=== PATIENT | female | born 1935 | race Caucasian/White ===

== ENCOUNTER 2017-04-17 13:33 | Observation (INO) | payer MEDICARE ==
[2017-04-17] MEDS ORDERED: XYLOCAINE 1%/Epi 1:100000 MDV 20 ML IJ ONE (13:46)
[2017-04-17] MEDS ORDERED: Adacel Vial IM ONE ×2 (13:46→16:00)
[2017-04-17 14:02] LABS: BASOPHIL % 0.2 % (0.0-0.4); Basophil (Absolute #) 0.02 (0-0.4); Eosinophil % 0.5 % (0.00-5.0); Eosinophil (Absolute #) 0.06 (0-0.5); Granulocyte Absolute (ANC) 9.16 (1.4-6.9); Granulocytes % 79.2 % (36.0-66.0); Hemoglobin 12.8 gm/dl (12.0-16.0); Lymphocyte (Absolute #) 1.85 (1.0-4.6); Mean Cell Volume 92.1 fl (78-100); Mean Corpuscular Hemoglobin 28.8 pg (26-32); Mean Corpuscular Hgb Concent. 31.2 g/dl (32-36); Mean Platelet Volume 9.3 fl (6-9.5); Monocyte (Absolute #) 0.48 (0.0-1.3); Monocytes % 4.1 % (0.0-12.0); Platelet Count 231 K/mm3 (150-450); Red Blood Count 4.45 M/mm3 (4.1-5.4); Red Cell Distribution Width 12.9 % (11.5-14.0); White Blood Count 11.6 K/mm3 (4.0-10.5)
[2017-04-17 14:32] LABS: ALBUMIN 3.6 g/dL (3.4-5.0); ALKALINE PHOSPHATASE 75 U/L (46-116); ANION GAP 10.3 MEQ/L (5-15); BLOOD UREA NITROGEN 23 mg/dL (9-20); CHLORIDE 105 mEq/L (98-107); Carbon Dioxide 28.3 mEq/L (21-32); Creatinine 1 1.06 mg/dl (0.55-1.30); EST GLOMERULAR FILTRATION RATE 53 ML/MIN; Glucose 145 MG/DL (70-110); Potassium 3.9 mEq/L (3.5-5.1); SGOT/AST 10 U/L (15-37); SODIUM 140 mEq/L (136-145); Total Protein 6.9 gm/dL (6.4-8.2)
--- NOTE | 2017-04-17 14:38 | ERPHSYRPT ---
- History of Present Illness Time Seen by Provider: 04/17/17 13:45 Source: patient, family () Patient Subjective Stated Complaint: pt was in kitchen and fell and hit head on fridge, unsure if had syncopal episode Triage Nursing Assessment: pt arrived alert and in wc, resp easy, skin w/d/p. laceration to back right side of head, no bleeding, no bruising or abrasions noted Physician History: CC: fell Hx: 82 y/o patient of Dr Meyers. The patient was standing in her kitchen and fell and hit her head. states she was awake right after. He thinks she passed out. She has hx of Parkinson's. She has a cut to the back of the head. Unsure last tetanus vaccine. No N/T/W. No chest or abd pain. Mild neck discomfort. Severity: mild, moderate Allergies/Adverse Reactions: No Known Drug Allergies Allergy (Verified 04/17/17 14:01) Home Medications: Carbidopa/Levodopa [Carbidopa-Levodopa 25-100 Tab] 25 - 100 mg TID 04/17/17 [ History] Lisinopril [Lisinopril] 20 mg DAILY 04/17/17 [History] Meclizine HCl 25 mg QID 04/17/17 [History] Omeprazole [Prilosec] 20 mg DAILY 04/17/17 [History] Oxybutynin Chloride [Oxybutynin Chloride ER] 10 mg DAILY 04/17/17 [History] Hx Tetanus, Diphtheria Vaccination/Date Given: No Hx Influenza Vaccination/Date Given: Yes Hx Pneumococcal Vaccination/Date Given: Yes Immunizations Up to Date: Yes - Review of Systems Constitutional: No Fever, No Chills Eyes: No Vision Changes Ears, Nose, & Throat: No Symptoms Respiratory: No Symptoms Cardiac: Syncope (?), No Chest Pain Abdominal/Gastrointestinal: No Abdominal Pain, No Nausea, No Vomiting, No Diarrhea Skin: Skin Lesions (cut to back of her head), No Rash All Other Systems: Reviewed and Negative - Past Medical History Pertinent Past Medical History: Yes Neurological History: Other ENT History: No Pertinent History Cardiac History: Hypertension Respiratory History: No Pertinent History Endocrine Medical History: No Pertinent History Musculoskeletal History: No Pertinent History GI Medical History: Gallbladder Disease, Hemorrhoids, Other History: Other Psycho-Social History: No Pertinent History Female Reproductive Disorders: No Pertinent History Other Medical History: back pain, occ incont of urine,tremors hands and feet, constipation - Past Surgical History Past Surgical History: Yes Neuro Surgical History: No Pertinent History Cardiac: No Pertinent History Respiratory: No Pertinent History Gastrointestinal: Cholecystectomy Genitourinary: No Pertinent History Musculoskeletal: No Pertinent History Female Surgical History: Hysterectomy Other Surgical History: salavary gland removed - Social History Smoking Status: Never smoker Exposure to second hand smoke: No Drug Use: none Patient Lives Alone: No - Female History Hx Last Menstrual Period: post - Nursing Vital Signs Nursing Vital Signs: Initial Vital Signs O2 Sat by Pulse Oximetry 100 04/17/17 14:08 Pain Scale Pain Intensity 4 - Physical Exam General Appearance: alert Eye Exam: PERRL/EOMI Ears, Nose, Throat Exam: moist mucous membranes Neck Exam: normal inspection, midline tenderness Respiratory Exam: normal breath sounds, lungs clear Cardiovascular Exam: regular rate/rhythm Gastrointestinal/Abdomen Exam: soft, No tenderness, No distention Extremity Exam: normal inspection, normal range of motion Neurologic Exam: alert, oriented x 3, cooperative, border guard II-XII nml as tested, sensation nml, No motor deficits Skin Exam: warm, dry, other (laceration back of her head occipital area) SpO2 Interpretation: normal SpO2: 100 Procedures - Laceration/Wound Repair scalp Wound Length (cm): 6 Wound's Depth, Shape: linear (to skull) Wound Explored: no foreign body noted Irrigated: Yes Hibiclens Prep: Yes Anesthesia: local, 1% lidocaine w/ Epi Volume Anesthetic (ccs): 7 Wound Repaired With: sutures Suture Size/Type: 4-0, prolene Number of Sutures: 9 Sterile Dressing Applied?: Yes - Course Nursing assessment & vital signs reviewed: Yes EKG Interpreted by Me: RATE (72), Sinus Rhythm, NORMAL AXIS, NORMAL INTERVALS ( QTc 444), Q-wave (inferior), NORMAL ST-T - Radiology Exams cxr X-ray Interpretation: Teleradiologist Report, Negative - CT Exams head CT Interpretation: Tele-radiologist Report (right posterior scalp laceration, nonacute senile brain, minimal paranasal sinus disease) cervical CT Interpretation: Tele-radiologist Report, No Fracture, No Subluxation Ordered Tests: Active Orders 24 hr Category Date Time Status Scouring Machine Operator STAT Care 04/17/17 13:46 Active Cath for Specimen-Straight STAT Care 04/17/17 13:46 Active EKG-ER Only STAT Care 04/17/17 13:45 Active IV Insertion STAT Care 04/17/17 13:45 Active Prepare for Sutures STAT Care 04/17/17 13:46 Active Pulse Oximetry (ED) STAT Care 04/17/17 13:45 Active Sutures STAT Care 04/17/17 13:46 Active Wound Care STAT Care 04/17/17 13:46 Active CERVICAL SPINE WO CONTRAST [CT] Stat Exams 04/17/17 13:45 Completed CHEST 1 VIEW (PORTABLE) Stat Exams 04/17/17 13:45 Completed HEAD WITHOUT CONTRAST [CT] Stat Exams 04/17/17 13:45 Completed CBC W DIFF Stat Lab 04/17/17 13:45 Completed CMP Stat Lab 04/17/17 13:45 Completed TROPONIN Q3H Lab 04/17/17 13:45 Completed TROPONIN Q3H Lab 04/17/17 17:00 Ordered TROPONIN Q3H Lab 04/17/17 20:00 Ordered TROPONIN Q3H Lab 04/17/17 23:00 Ordered TROPONIN Q3H Lab 04/18/17 02:00 Ordered UA W/RFX UR CULTURE Stat Lab 04/17/17 15:00 Completed Medication Summary Discontinued Medications Generic Name Dose Route Start Last Admin Trade Name Freq PRN Reason Stop Dose Admin Diphtheria/Tetanus/Acell Pertussis 0.5 ml 04/17/17 13:46 Adacel Vial IM 04/17/17 13:47 .ONCE ONE Lidocaine/Epinephrine 5 ml 04/17/17 13:46 Xylocaine 1%/Epi 1:343006 Mdv 20 Ml IJ 04/17/17 13:47 STAT ONE Lidocaine/Epinephrine Confirm 04/17/17 14:42 Xylocaine 1%/Epi 1:748852 Mdv 20 Ml Administered 04/17/17 14:43 Dose 5 ml .ROUTE .STK-MED ONE Lidocaine/Epinephrine Confirm 04/17/17 14:44 Xylocaine 1%/Epi 1:297413 Mdv 20 Ml Administered 04/17/17 14:45 Dose 1 ml .ROUTE .STK-MED ONE Lidocaine/Epinephrine Confirm 04/17/17 14:58 Xylocaine 1%/Epi 1:062151 Mdv 20 Ml Administered 04/17/17 14:59 Dose 5 ml .ROUTE .STK-MED ONE Lab/Rad Data: Laboratory Result Diagrams 04/17/17 13:45 04/17/17 13:45 Laboratory Results 04/17/17 04/17/17 04/17/17 Range/Units 15:00 13:45 13:45 WBC (4.0-10.5) K/mm3 RBC (4.1-5.4) M/mm3 Hgb (12.0-16.0) gm/dl Hct (35-47) % MCV (78-100) fl MCH (26-32) pg MCHC (32-36) g/dl RDW (11.5-14.0) % Plt Count (150-450) K/mm3 MPV (6-9.5) fl Gran % (36.0-66.0) % Lymphocytes % (24.0-44.0) % Monocytes % (0.0-12.0) % Eosinophils % (0.00-5.0) % Basophils % (0.0-0.4) % Basophils # (0-0.4) Sodium 140 (136-145) mEq/L Potassium 3.9 (3.5-5.1) mEq/L Chloride 105 (98-107) mEq/L Carbon Dioxide 28.3 (21-32) mEq/L Anion Gap 10.3 (5-15) MEQ/L BUN 23 H (9-20) mg/dL Creatinine 1.06 (0.55-1.30) mg/dl Estimated GFR 53 ML/MIN Glucose 145 H (70-110) MG/DL Calcium 9.0 (8.5-10.1) mg/dL Total Bilirubin 0.40 (0.2-1.0) mg/dL AST 10 L (15-37) U/L ALT < 6 L (12-78) U/L Alkaline Phosphatase 75 (46-116) U/L Troponin I < 0.017 (0.000-0.056) ng/ml Serum Total Protein 6.9 (6.4-8.2) gm/dL Albumin 3.6 (3.4-5.0) g/dL Ur Collection Type CATH Urine Color YELLOW (YELLOW) Urine Appearance CLEAR (CLEAR) Urine pH 5.0 (5-6) Ur Specific [place] 1.025 (1.005-1.025) Urine Protein NEGATIVE (Negative) Urine Ketones NEGATIVE (NEGATIVE) Urine Blood NEGATIVE (0-5) Marvin/ul Urine Nitrite NEGATIVE (NEGATIVE) Urine Bilirubin NEGATIVE (NEGATIVE) Urine Urobilinogen NORMAL (0-1) mg/dL Ur Leukocyte Esterase NEGATIVE (NEGATIVE) Urine Culture Reflexed NO (NO) Urine Glucose NEGATIVE (NEGATIVE) mg/dL Specimen Received 04-17-17 1500 04/17/17 Range/Units 13:45 WBC 11.6 H (4.0-10.5) K/mm3 RBC 4.45 (4.1-5.4) M/mm3 Hgb 12.8 (12.0-16.0) gm/dl Hct 41.0 (35-47) % MCV 92.1 (78-100) fl MCH 28.8 (26-32) pg MCHC 31.2 L (32-36) g/dl RDW 12.9 (11.5-14.0) % Plt Count 231 (150-450) K/mm3 MPV 9.3 (6-9.5) fl Gran % 79.2 H (36.0-66.0) % Lymphocytes % 16.0 L (24.0-44.0) % Monocytes % 4.1 (0.0-12.0) % Eosinophils % 0.5 (0.00-5.0) % Basophils % 0.2 (0.0-0.4) % Basophils # 0.02 (0-0.4) Sodium (136-145) mEq/L Potassium (3.5-5.1) mEq/L Chloride (98-107) mEq/L Carbon Dioxide (21-32) mEq/L Anion Gap (5-15) MEQ/L BUN (9-20) mg/dL Creatinine (0.55-1.30) mg/dl Estimated GFR ML/MIN Glucose (70-110) MG/DL Calcium (8.5-10.1) mg/dL Total Bilirubin (0.2-1.0) mg/dL AST (15-37) U/L ALT (12-78) U/L Alkaline Phosphatase (46-116) U/L Troponin I (0.000-0.056) ng/ml Serum Total Protein (6.4-8.2) gm/dL Albumin (3.4-5.0) g/dL Ur Collection Type Urine Color (YELLOW) Urine Appearance (CLEAR) Urine pH (5-6) Ur Specific [place] (1.005-1.025) Urine Protein (Negative) Urine Ketones (NEGATIVE) Urine Blood (0-5) Marvin/ul Urine Nitrite (NEGATIVE) Urine Bilirubin (NEGATIVE) Urine Urobilinogen (0-1) mg/dL Ur Leukocyte Esterase (NEGATIVE) Urine Culture Reflexed (NO) Urine Glucose (NEGATIVE) mg/dL Specimen Received - Progress Progress Note: 04/17/17 15:25 Pt stable here. Will ambulate and recheck vitals. 04/17/17 15:49 BP 207/99 after ambulating to BR. She was a little shaky but per normal according to . Called Dr Danuta Meyers. Will place in obs for syncope. Discussed with : Monserrat Will see patient in: hospital (observation) Counseled pt/family regarding: lab results, diagnosis, need for follow-up, rad results - Departure Time of Disposition: 15:49 Departure Disposition: Observation (Tele) Clinical Impression: Syncope, Scalp laceration Condition: Fair Critical Care Time: No Referrals: RD MEYERS [Primary Care Provider] -
--- NOTE | 2017-04-17 14:40 | XRAY ---
Indication: Posterior head trauma following syncope. Multiple contiguous axial images obtained through the cervical spine. Sagittal and coronal reformatted images obtained. Comparison: None Axial images demonstrates osteopenia and 4 mm superior C4 well-circumscribed sclerotic probable benign bone island. No acute fracture, suspicious bony lesions, or spinal canal stenosis. Mild atlantoaxial degenerative changes and mild multilevel bilateral degenerative facet arthropathy. Sagittal and coronal reformatted images demonstrates normal alignment. Disc spaces maintained. No acute compression fracture, subluxation, or jumped facet. Normal-appearing craniocervical junction. Visualized noncontrasted soft tissues demonstrates mild chronic ossifications, right greater than left. Lung apices clear. CT head reported separately. Impression: 1. Negative acute fracture/subluxation. 2. Mild multilevel degenerative changes and probable benign C4 bone island. CT DI 49.17
[2017-04-17] MEDS ORDERED: XYLOCAINE 1%/Epi 1:100000 MDV 20 ML ONE ×3 (14:42→14:58)
--- NOTE | 2017-04-17 14:44 | XRAY ---
Indication: Posterior head trauma following syncopal fall. Multiple contiguous axial images obtained through the head without contrast. Comparison: None Small right posterior parietal scalp laceration. Age-appropriate global atrophy and minimal periventricular degenerative micro-ischemia. No acute intracranial hemorrhage, abnormal extra axial fluid collection, or mass effect. Fourth ventricle is midline without hydrocephalus. Garcia-white matter differentiation preserved. Bony calvarium intact. Minimal mucosal thickening floor of the maxillary sinus, right greater than left. Remaining visualized paranasal sinuses and mastoid air cells are clear. Impression: Right posterior parietal scalp laceration. Otherwise nonacute senile brain. Minimal paranasal sinus disease. CT DI 51.17
--- NOTE | 2017-04-17 14:45 | XRAY ---
Indication: Syncope. Comparison: None Portable chest demonstrate minimal bibasilar fibrosis/scarring. Remaining lungs clear. Heart is not enlarged for AP portable technique. Vascularity normal. Bony thorax intact with mild osteopenia and degenerative changes. Impression: Nonacute chest with chronic features.
[2017-04-17 15:07] LABS: Appearance CLEAR (CLEAR); Bilirubin NEGATIVE (NEGATIVE); Blood NEGATIVE Ery/ul (0-5); Glucose NEGATIVE (NEGATIVE); Ketones NEGATIVE (NEGATIVE); Leukocyte Esterase NEGATIVE (NEGATIVE); Nitrite NEGATIVE (NEGATIVE); Protein,Urine Dip NEGATIVE (Negative); Specific Gravity 1.025 (1.005-1.025); Urobilinogen NORMAL mg/dL (0-1)
[2017-04-17 15:14] LABS: SGPT/ALT < 6 U/L (12-78)
[2017-04-17] MEDS ORDERED: TYLENOL 325 MG PO PRN (16:44)
[2017-04-17] MEDS ORDERED: Catapres 0.1 MG PO PRN (18:15)
--- NOTE | 2017-04-17 18:17 | PCM.HP ---
History of Present Illness - Chief Complaint Chief Complaint: syncope Date: 04/17/17 History of Present Illness: is a 82 year old female. who was feeling her normal self and taking her medication as prescribed when she was walking in the kitchen with a de la fuente and suddenly collapsed her heard her it and came in and she was conscious. She thinks she began feeling dizzy just before the synope. She reports occassionally feeling light headed but is always able to sit down prior to any difficulties from it. Today she is unsure what happened. She hit the back of her head and cut her lip. She has a mild headache but otherwise is feeling ok right now no nausea of vomiting. no dizziness. - Review of Systems Constitutional: No Fever, No Chills Eyes: No Symptoms Ears, Nose, & Throat: No Symptoms Respiratory: No Cough, No Short Of Breath Cardiac: No Chest Pain, No Edema, No Syncope Abdominal/Gastrointestinal: No Abdominal Pain, No Nausea, No Vomiting, No Diarrhea Genitourinary Symptoms: No Dysuria Musculoskeletal: No Back Pain, No Neck Pain Skin: No Rash Neurological: No Dizziness, No Focal Weakness, No Sensory Changes Psychological: No Symptoms Endocrine: No Symptoms Hematologic/Lymphatic: No Symptoms Immunological/Allergic: No Symptoms Medications & Allergies Home Medications: Home Medication List Calcium Carbonate/Vitamin D3 [Caltrate 600 + D Soft Chew Tab] 1 each PO BID 07/28 [History Confirmed 04/17/17] Carbidopa/Levodopa [Carbidopa-Levodopa 25-100 Tab] 25 - 100 mg PO UD 04/17/17 [ History Confirmed 04/17/17] Carbidopa/Levodopa [Carbidopa-Levodopa 25-250 Tab] 1.5 tab PO QAM 04/17/17 [ History Confirmed 04/17/17] Lactulose [Lactulose 20 gm/30Ml Ud Cup] 30 ml PO DAILY 04/17/17 [History Confirmed 04/17/17] Lisinopril [Lisinopril] 20 mg DAILY 04/17/17 [History Confirmed 04/17/17] Magnesium Oxide [Magnesium] 400 mg PO DAILY 04/17/17 [History Confirmed 04/17/17 ] Meclizine HCl 25 mg PO QID 04/17/17 [History Confirmed 04/17/17] Omeprazole [Prilosec] 20 mg PO DAILY 04/17/17 [History Confirmed 04/17/17] Oxybutynin Chloride [Oxybutynin Chloride ER] 5 mg PO DAILY 04/17/17 [History Confirmed 04/17/17] Pramipexole Di-HCl 0.5 mg [Mirapex 0.5 MG Tablet] 0.5 mg PO TID 04/17/17 [ History Confirmed 04/17/17] Allergies/Adverse Reactions: Allergies Allergy/AdvReac Type Severity Reaction Status Date / Time No Known Drug Allergies Allergy Verified 04/17/17 14:01 - Past Medical History Past Medical History: Yes Neurological History: Other ENT History: No Pertinent History Cardiac History: Hypertension Respiratory History: No Pertinent History Endocrine Medical History: No Pertinent History Musculoskelatal History: No Pertinent History GI Medical History: Gallbladder Disease, Hemorrhoids, Other History: Other Pyscho-Social History: No Pertinent History Reproductive Disorders: No Pertinent History Comment: back pain, occ incont of urine,tremors hands and feet,constipation - Female History Hx Last Menstrual Period: post - Past Surgical History Past Surgical History: Yes Neuro Surgical History: No Pertinent History Cardiac History: No Pertinent History Respiratory Surgery: No Pertinent History GI Surgical History: Cholecystectomy Genitourinary Surgical Hx: No Pertinent History Musculskeletal Surgical Hx: No Pertinent History Female Surgical History: Hysterectomy Other Surgical History: salavary gland removed - Social History Smoking Status: Never smoker Exposure to second hand smoke: No Alcohol: None Drug Use: none - Physical Exam Vital Signs: Vital Signs - 24 hr Pulse Resp BP Pulse Ox 04/17/17 15:56 77 18 192/95 98 04/17/17 15:50 100 04/17/17 14:08 100 General Appearance: no apparent distress, alert, thin Neurologic Exam: alert, oriented x 3, cooperative, normal mood/affect, nml cerebellar function, sensation nml, No motor deficits Eye Exam: PERRL/EOMI, eyes nml inspection, No scleral icterus, No pale conjunctivae Ears, Nose, Throat Exam: normal ENT inspection, pharynx normal, moist mucous membranes Neck Exam: normal inspection, non-tender, supple, full range of motion, other ( chronic large anterior neck cyst mobile nontender) Respiratory Exam: normal breath sounds, lungs clear, No respiratory distress Cardiovascular Exam: regular rate/rhythm, normal heart sounds, normal peripheral pulses Gastrointestinal/Abdomen Exam: soft, normal bowel sounds, No tenderness, No mass Back Exam: normal inspection, normal range of motion, No CVA tenderness, No vertebral tenderness Extremity Exam: normal inspection, normal range of motion, pelvis stable Skin Exam: normal color, warm, dry, No rash Lymphatic Exam: No adenopathy Assessment/Plan (1) Syncope Current Visit: Yes Status: Acute Assessment & Plan: 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 Bowman a few years ago no echo available will check am echo continue telemetry work on improved blood pressure control monitor for orthostatic hypotension Code(s): R55 - SYNCOPE AND COLLAPSE (2) Scalp laceration Current Visit: Yes Status: Acute Assessment & Plan: received tdap and sutured in ed (3) Parkinson disease Current Visit: Yes Status: Acute Code(s): G20 - PARKINSON'S DISEASE
[2017-04-17] MEDS ORDERED: ANTIVERT 25 MG PO PRN (20:01)
[2017-04-17] MEDS: Mirapex 0.5 MG Tablet PO SCH (20:40)
[2017-04-17] MEDS ORDERED: Sinemet 25/100 MG PO ONE (22:00)
[2017-04-18 07:32] VITALS: BP 148/77; O2SAT 95
[2017-04-18 08:09] VITALS: PULSE 89
--- NOTE | 2017-04-18 08:15 | PCM.DS ---
Discharge Summary Date of Admission: 04/17/17 17:03 Date of Discharge: 04/18/2017 Admitting Physician: RD MEYERS Primary Care Provider: RD MEYERS Allergies Allergies No Known Drug Allergies Allergy (Verified 04/17/17 14:01) Hospital Summary - Vitals & Intake/Output Vital Signs: Vital Signs Temperature 98.3 F 04/18/17 07:31 Pulse Rate 18 L 04/18/17 07:31 Respiratory Rate 89 H 04/18/17 07:31 Blood Pressure 148/77 04/18/17 07:31 O2 Sat by Pulse Oximetry 95 04/18/17 07:31 Intake & Output: Intake & Output 04/15/17 04/16/17 04/17/17 04/18/17 11:59 11:59 11:59 11:59 Intake Total 700 Output Total 400 Balance 300 Weight 67.2 kg - Lab Result Diagrams: 04/17/17 13:45 04/17/17 13:45 Lab Results-Last 24 Hrs: Lab Results-Last 24 Hours 04/17/17 Range/Units 20:16 Troponin I < 0.017 (0.000-0.056) ng/ml - Radiology Exams Ordered Rad Exams-Entire Visit: Radiology Procedures Category Date Time Status ECHO W/2D AND DOPPLER [US] Routine Exams 04/18/17 08:00 Ordered Final Diagnosis/Problem List - Final Discharge Diagnosis/Problem (1) Syncope Current Visit: Yes Status: Acute (2) Scalp laceration Current Visit: Yes Status: Acute (3) Parkinson disease Current Visit: Yes Status: Acute - Discharge Discharge Date: 04/18/17 Disposition: Home, Self-Care Condition: Stable Prescriptions: New Metoprolol Succinate 25 mg Xl* [Toprol-Xl 25MG Tablets] 25 mg PO DAILY # 30 tab Continue Meclizine HCl 25 mg PO QID Oxybutynin Chloride [Oxybutynin Chloride ER] 5 mg PO DAILY Omeprazole [Prilosec] 20 mg PO DAILY Lisinopril 20 mg DAILY Carbidopa/Levodopa [Carbidopa-Levodopa 25-100 Tab] 25 - 100 mg PO UD Lactulose [Lactulose 20 gm/30Ml Ud Cup] 30 ml PO DAILY Carbidopa/Levodopa [Carbidopa-Levodopa 25-250 Tab] 1.5 tab PO QAM Calcium Carbonate/Vitamin D3 [Caltrate 600 + D Soft Chew Tab] 1 each PO BID Pramipexole Di-HCl 0.5 mg [Mirapex 0.5 MG Tablet] 0.5 mg PO TID Magnesium Oxide [Magnesium] 400 mg PO DAILY Additional Instructions: after echo sutures to be removed in 10 days ok to shower tomorrow no soaking the head ok to leave sutured wound open without dressing Follow up with: RD MEYERS [Primary Care Provider] -
[2017-04-18] MEDS ORDERED: Toprol-Xl 25MG Tablets PO SCH (08:30)
[2017-04-18] MEDS ORDERED: Ditropan XL 5 MG PO SCH (10:00)
[2017-04-18] MEDS ORDERED: [UNRECOGNIZED DRUG - OTHER] PO SCH (10:00)
[2017-04-18] MEDS ORDERED: Sinemet 25/250 MG PO SCH (10:00)
[2017-04-18] MEDS ORDERED: MAG-OX 400 PO SCH (10:00)
[2017-04-18] MEDS ORDERED: Protonix 40MG Tablet PO SCH (10:00)
[2017-04-18] MEDS ORDERED: Calcium 500MG W/Vit D Tablet PO SCH (10:00)
[2017-04-18] MEDS ORDERED: CALCIUM CARBONATE PO SCH (10:00)
[2017-04-18] MEDS ORDERED: Zestril 20 MG PO SCH (10:00)
[2017-04-18] MEDS ORDERED: LACTULOSE 20 GM/30ML UD CUP PO SCH (10:00)
[2017-04-18] MEDS ORDERED: VITAMIN D3 PO SCH (10:00)
[2017-04-18] MEDS: Mirapex 0.5 MG Tablet PO SCH (10:55)
[2017-04-18] MEDS ORDERED: Sinemet 25/100 MG PO SCH (12:00)
--- NOTE | 2017-04-20 08:47 | ECHO ---
DATE OF PROCEDURE: 04/18/2017 INDICATION: An echocardiogram was requested on this patient with complaints of syncopal episode. ECHOCARDIOGRAM FINDINGS: CHAMBERS: The left atrium is normal size. Left ventricle is normal size. There is mild concentric left ventricular hypertrophy present. Normal left ventricular systolic function. Ejection fraction 60%. Right atrium is normal in size. Right ventricle is normal in size. Aortic root is normal. VALVES: Aortic valve leaflets are not well visualized. Mitral and tricuspid valve leaflets are normal structure and mobility. Doppler evaluation of the valves revealed mild mitral regurgitation and mild tricuspid regurgitation. Calculated right ventricular systolic pressure is within normal limits. IMPRESSION: 1) TECHNICALLY DIFFICULT STUDY. 2) NORMAL INTRACARDIAC CHAMBER DIMENSIONS. 3) MILD CONCENTRIC LEFT VENTRICULAR HYPERTROPHY. 4) NORMAL LEFT VENTRICULAR SYSTOLIC FUNCTION. EJECTION FRACTION 60%. 5) MILD MITRAL REGURGITATION. 6) MILD TRICUSPID REGURGITATION. 7) NO PERICARDIAL EFFUSION.
== END 2017-04-18 11:25 | disposition home or self-care (01) ==
LOC: ED 13:33 → MED SURG 17:03
PROVIDERS: ADMIT Family Medicine; ATTEND Family Medicine
PROC: 0HQ0XZZ Repair Scalp Skin, External Approach (ICD-10-PCS; principal; 2017-04-17)
DX: R55 Syncope and collapse (principal); S01.01XA Laceration without foreign body of scalp, initial encounter; W18.30XA Fall on same level, unspecified, initial encounter; Y92.000 Kitchen of unspecified non-institutional (private) residence as the place of occurrence of the external cause; G20 Parkinson's disease; Z79.899 Other long term (current) drug therapy
CPT/HCPCS: 36000; 36415; 70450; 71045; 72125; 80053; 81002; 84484; 85025; 90471; 90715; 93005; 93041; 93268; 93306; 96372; 99285; G0378; P9612; A9270-GY

== ENCOUNTER 2017-08-25 00:27 | Observation (INO) | payer MEDICARE ==
--- NOTE | 2017-08-25 00:48 | ERPHSYRPT ---
- History of Present Illness Time Seen by Provider: 08/25/17 00:44 Source: patient Exam Limitations: no limitations Physician History: 82-year-old white female with history of high blood pressure, gallbladder disease, hemorrhoidectomy, back pain, occasional urinary incontinence and, tremors of the hands and feet She is brought by family with complaints that the patient has been passing out and has had a high blood pressure. On arrival patient states that she has not been passing out is not done so she is done back in June. She does state that she woke up about 40 minutes prior to arrival she felt paresthesias to her left hand in the apparently her blood pressure was noted to be elevated. She is not having any problems speaking or moving. Past medical history includes high blood pressure, gallbladder disease, hemorrhoidectomy, back pain, occasional incontinence of urine, tremors of her hands and feet. Past surgical history includes cholecystectomy, hysterectomy, salivary gland removed. Timing/Duration: today (40 minutes prior to arriva) Severity: moderate Modifying Factors: Improves With: nothing Associated Symptoms: other (paresthesia left hand), No nausea, No vomiting, No abdominal pain, No shortness of breath, No heartburn, No diaphoresis, No cough, No chills, No chest pain, No fever, No headaches, No loss of appetite, No malaise, No rash, No syncope, No seizure, No weakness Allergies/Adverse Reactions: No Known Drug Allergies Allergy (Verified 04/17/17 14:01) Home Medications: Calcium Carbonate/Vitamin D3 [Caltrate 600 + D Soft Chew Tab] 1 each PO BID 07/28 [History] Carbidopa/Levodopa [Carbidopa-Levodopa 25-100 Tab] 25 - 100 mg PO UD 04/17/17 [ History] Carbidopa/Levodopa [Carbidopa-Levodopa 25-250 Tab] 1.5 tab PO QAM 04/17/17 [ History] Lactulose [Lactulose 20 gm/30Ml Ud Cup] 30 ml PO DAILY 04/17/17 [History] Lisinopril 20 mg DAILY 04/17/17 [History] Magnesium Oxide [Magnesium] 400 mg PO DAILY 04/17/17 [History] Meclizine HCl 25 mg PO QID 04/17/17 [History] Omeprazole [Prilosec] 20 mg PO DAILY 04/17/17 [History] Oxybutynin Chloride [Oxybutynin Chloride ER] 5 mg PO DAILY 04/17/17 [History] Pramipexole Di-HCl 0.5 mg [Mirapex 0.5 MG Tablet] 0.5 mg PO TID 04/17/17 [ History] Hx Tetanus, Diphtheria Vaccination/Date Given: No Hx Influenza Vaccination/Date Given: Yes Hx Pneumococcal Vaccination/Date Given: Yes - Review of Systems Constitutional: No Fever, No Chills Eyes: No Symptoms Ears, Nose, & Throat: No Symptoms Respiratory: No Cough, No Dyspnea Cardiac: No Chest Pain, No Edema, No Syncope Abdominal/Gastrointestinal: No Abdominal Pain, No Nausea, No Vomiting, No Diarrhea Genitourinary Symptoms: No Dysuria Musculoskeletal: No Back Pain, No Neck Pain Skin: No Rash Neurological: Parasthesia (paresthesia left hand and arm), No Dizziness, No Focal Weakness, No Gait Changes, No Headache, No Irritability, No Lethargy, No Paralysis Psychological: No Symptoms Endocrine: No Symptoms All Other Systems: Reviewed and Negative - Past Medical History Pertinent Past Medical History: Yes Neurological History: Other ENT History: No Pertinent History Cardiac History: Hypertension Respiratory History: No Pertinent History Endocrine Medical History: No Pertinent History Musculoskeletal History: Arthritis GI Medical History: Gallbladder Disease, Hemorrhoids, Other History: Other Psycho-Social History: No Pertinent History Female Reproductive Disorders: No Pertinent History Other Medical History: Parkinson's - Past Surgical History Past Surgical History: Yes Neuro Surgical History: No Pertinent History Cardiac: No Pertinent History Respiratory: No Pertinent History Gastrointestinal: Cholecystectomy Genitourinary: No Pertinent History Musculoskeletal: No Pertinent History Female Surgical History: Hysterectomy Other Surgical History: salavary gland removed - Social History Smoking Status: Never smoker Exposure to second hand smoke: No Drug Use: none Patient Lives Alone: No - Nursing Vital Signs Nursing Vital Signs: Initial Vital Signs Pulse Rate 68 08/25/17 00:43 Respiratory Rate 16 08/25/17 00:43 Blood Pressure 225/107 08/25/17 00:43 O2 Sat by Pulse Oximetry 97 08/25/17 00:43 Pain Scale Pain Intensity 0 - Physical Exam General Appearance: no apparent distress, alert Eye Exam: PERRL/EOMI, eyes nml inspection Ears, Nose, Throat Exam: normal ENT inspection, TMs normal, pharynx normal, moist mucous membranes Neck Exam: normal inspection, non-tender, supple, full range of motion Respiratory Exam: normal breath sounds, lungs clear, No respiratory distress Cardiovascular Exam: regular rate/rhythm (him to have him him hear), normal heart sounds, normal peripheral pulses Gastrointestinal/Abdomen Exam: soft, normal bowel sounds, No tenderness, No mass Back Exam: normal inspection, normal range of motion, No CVA tenderness, No vertebral tenderness Extremity Exam: normal inspection, normal range of motion, pelvis stable Neurologic Exam: oriented x 3, cooperative, 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 as tested, normal mood/affect, nml cerebellar function, sensation nml, other (patient is alert, oriented 3, speech is normal, no facial droop, normal gait, 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 and 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 5/5, normal finger to nose, no pronator drift, GCS equals 15, sensation intact all extremities), No motor deficits, No sensory deficit Skin Exam: normal color, warm, dry, No rash Lymphatic Exam: No adenopathy SpO2 Interpretation: normal (You get him97%) - Course Nursing assessment & vital signs reviewed: Yes EKG Interpreted by Me: RATE (62 bpm), Sinus Rhythm, Other (EKG: Sinus rhythm, 62 bpm, axisSI/QIII pattern, no acute ST or T wave changes, essentially normal EKG) - CT Exams Head CT Interpretation: Tele-radiologist Report (head CT: Impression: Negative for intracrani hemorrhage or mass effect) Ordered Tests: Active Orders 24 hr Category Date Time Status Accucheck Care 08/25/17 00:42 Active Nursery Hand STAT Care 08/25/17 00:43 Active Nursery Hand STAT Care 08/25/17 00:43 Active IV Insertion STAT Care 08/25/17 00:42 Active HEAD WITHOUT CONTRAST [CT] Stat Exams 08/25/17 00:42 Taken CBC W DIFF Stat Lab 08/25/17 00:42 Completed CMP Stat Lab 08/25/17 00:42 Completed PROTIME WITH INR Stat Lab 08/25/17 00:42 Completed PTT Stat Lab 08/25/17 00:42 Completed TROPONIN Q3H Lab 08/25/17 00:45 Completed TROPONIN Q3H Lab 08/25/17 03:45 Ordered TROPONIN Q3H Lab 08/25/17 06:45 Ordered TROPONIN Q3H Lab 08/25/17 09:45 Ordered TROPONIN Q3H Lab 08/25/17 12:45 Ordered UA W/RFX UR CULTURE Stat Lab 08/25/17 01:15 Completed Transfer Order Routine Transfer 08/25/17 Ordered Medication Summary Generic Name Dose Route Start Last Admin Trade Name Jaylonq PRN Reason Stop Dose Admin Hydralazine HCl 5 mg 08/25/17 01:31 08/25/17 02:30 Apresoline 20 Mg/Ml Inj IV 09/24/17 01:30 5 mg [id number] PRN Administration HYPERTENSION Hydralazine HCl 5 mg 08/25/17 02:26 Apresoline 20 Mg/Ml Inj IV 09/24/17 02:25 [id number] PRN HYPERTENSION Discontinued Medications Generic Name Dose Route Start Last Admin Trade Name Freq PRN Reason Stop Dose Admin Aspirin 162 mg 08/25/17 02:37 08/25/17 02:44 Baby Aspirin 81 Mg Chew PO 08/25/17 02:38 162 mg STAT ONE Administration Aspirin Confirm 08/25/17 02:42 Baby Aspirin 81 Mg Chew Administered 08/25/17 02:43 Dose 162 mg .ROUTE .STK-MED ONE Lisinopril 20 mg 08/25/17 02:38 08/25/17 03:23 Zestril 20 Mg PO 08/25/17 02:39 Not Given STAT ONE Metoprolol Succinate 25 mg 08/25/17 02:37 08/25/17 02:44 Toprol-Xl 25mg Tablets PO 08/25/17 02:38 25 mg STAT ONE Administration Metoprolol Succinate Confirm 08/25/17 02:43 Toprol-Xl 25mg Tablets Administered 08/25/17 02:44 Dose 25 mg .ROUTE .STK-MED ONE Lab/Rad Data: Laboratory Result Diagrams 08/25/17 00:42 08/25/17 00:42 Laboratory Results 08/25/17 08/25/17 08/25/17 Range/Units 01:15 00:45 00:42 WBC (4.0-10.5) K/mm3 RBC (4.1-5.4) M/mm3 Hgb (12.0-16.0) gm/dl Hct (35-47) % MCV (78-100) fl MCH (26-32) pg MCHC (32-36) g/dl RDW (11.5-14.0) % Plt Count (150-450) K/mm3 MPV (6-9.5) fl Gran % (36.0-66.0) % Eos # (Auto) (0-0.5) Absolute Lymphs (auto) (1.0-4.6) Absolute Monos (auto) (0.0-1.3) Lymphocytes % (24.0-44.0) % Monocytes % (0.0-12.0) % Eosinophils % (0.00-5.0) % Basophils % (0.0-0.4) % Absolute Granulocytes (1.4-6.9) Basophils # (0-0.4) PT 11.2 (9.95-12.35) SECONDS INR 0.96 (0.8-3.0) APTT 37.0 (25.3-37.0) SECONDS Sodium (137-145) mmol/L Potassium (3.5-5.1) mmol/L Chloride (98-107) mmol/L Carbon Dioxide (22-30) mmol/L Anion Gap (5-15) MEQ/L BUN (7-17) mg/dL Creatinine (0.52-1.04) mg/dL Estimated GFR ML/MIN Glucose (74-106) mg/dL Calcium (8.4-10.2) mg/dL Total Bilirubin (0.2-1.3) mg/dL AST (14-36) U/L ALT (0-35) U/L Alkaline Phosphatase (38-126) U/L Troponin I < 0.012 (0.000-0.034) ng/mL Serum Total Protein (6.3-8.2) g/dL Albumin (3.5-5.0) g/dL Ur Collection Type VOID Urine Color LT.YELLOW (YELLOW) Urine Appearance CLEAR (CLEAR) Urine pH 8.0 (5-6) Ur Specific Odd 1.000 (1.005-1.025) Urine Protein NEGATIVE (Negative) Urine Ketones NEGATIVE (NEGATIVE) Urine Blood NEGATIVE (0-5) Marvin/ul Urine Nitrite NEGATIVE (NEGATIVE) Urine Bilirubin NEGATIVE (NEGATIVE) Urine Urobilinogen NORMAL (0-1) mg/dL Ur Leukocyte Esterase NEGATIVE (NEGATIVE) Urine Culture Reflexed NO (NO) Urine Glucose NEGATIVE (NEGATIVE) mg/dL Specimen Received 08/25 01108/25/17 08/25/17 Range/Units 00:42 00:42 WBC 7.8 (4.0-10.5) K/mm3 RBC 4.62 (4.1-5.4) M/mm3 Hgb 13.5 (12.0-16.0) gm/dl Hct 41.9 (35-47) % MCV 90.7 (78-100) fl MCH 29.2 (26-32) pg MCHC 32.2 (32-36) g/dl RDW 13.6 (11.5-14.0) % Plt Count 219 (150-450) K/mm3 MPV 9.4 (6-9.5) fl Gran % 55.2 (36.0-66.0) % Eos # (Auto) 0.11 (0-0.5) Absolute Lymphs (auto) 2.91 (1.0-4.6) Absolute Monos (auto) 0.46 (0.0-1.3) Lymphocytes % 37.1 (24.0-44.0) % Monocytes % 5.9 (0.0-12.0) % Eosinophils % 1.4 (0.00-5.0) % Basophils % 0.4 (0.0-0.4) % Absolute Granulocytes 4.33 (1.4-6.9) Basophils # 0.03 (0-0.4) PT (9.95-12.35) SECONDS INR (0.8-3.0) APTT (25.3-37.0) SECONDS Sodium 142 (137-145) mmol/L Potassium 4.1 (3.5-5.1) mmol/L Chloride 103 (98-107) mmol/L Carbon Dioxide 30 (22-30) mmol/L Anion Gap 12.8 (5-15) MEQ/L BUN 19 H (7-17) mg/dL Creatinine 1.07 H (0.52-1.04) mg/dL Estimated GFR 52.3 ML/MIN Glucose 106 (74-106) mg/dL Calcium 9.8 (8.4-10.2) mg/dL Total Bilirubin 0.40 (0.2-1.3) mg/dL AST 13 L (14-36) U/L ALT < 4 (0-35) U/L Alkaline Phosphatase 84 (38-126) U/L Troponin I (0.000-0.034) ng/mL Serum Total Protein 7.0 (6.3-8.2) g/dL Albumin 4.1 (3.5-5.0) g/dL Ur Collection Type Urine Color (YELLOW) Urine Appearance (CLEAR) Urine pH (5-6) Ur Specific Odd (1.005-1.025) Urine Protein (Negative) Urine Ketones (NEGATIVE) Urine Blood (0-5) Marvin/ul Urine Nitrite (NEGATIVE) Urine Bilirubin (NEGATIVE) Urine Urobilinogen (0-1) mg/dL Ur Leukocyte Esterase (NEGATIVE) Urine Culture Reflexed (NO) Urine Glucose (NEGATIVE) mg/dL Specimen Received - Progress Progress: improved Progress Note: 08/25/17 02:39 This is a 82-year-old white female with history of high blood pressure, gallbladder disease, hemorrhoids, back pain, occasional incontinence of urine and chronic tremors She arrives with complaints of paresthesias to the left arm since 40 minutes prior to arrival. She did not have any focal deficits her blood pressure was noted to be markedly elevated on arrival with blood pressure of 225/107. Patient had a normal neurologic exam she did not appear to be extremely anxious. Patient with EKG remarkable for sinus rhythm 2 bpm axis S1/QIII pattern. Patient with a head CT with no intercranial bleeding or mass effect Patient's labs essentially a normal this includes CBC chemistry and troponin urinalysis was unremarkable. Patient was given Apresaline 5 mg IV patient had a transient improvement of blood pressure to 197/96 however the blood pressure increased at 220/91 and a second dose of Apresoline was ordered. I discussed the patient's case with Dr. Henry, the patient's family doctor. He requested that I go ahead and give patient Toprol-XL 25 mg one by mouth which she takes daily. And also give her lisinopril 20 mg by mouth. And will place patient on MedSurg telemetry with Apresoline 5 mg IV every 4 hours when necessary systolic blood pressure greater than 190 or diastolic blood pressure greater than 90. Every 4 hours neuro exam will be ordered. Patient will also be given aspirin 162 mg in the emergency room, 08/25/17 03:24 Patient in no acute distress at this time. Blood pressure 151/73 after second dose of Apresoline [address] patient on observation. - Departure Time of Disposition: 03:16 Departure Disposition: Observation Clinical Impression: Hypertensive urgency, Paresthesia of left arm Condition: Fair Critical Care Time: No Referrals: RD MEYERS [Primary Care Provider] -
[2017-08-25 01:05] LABS: BASOPHIL % 0.4 % (0.0-0.4); Basophil (Absolute #) 0.03 (0-0.4); Eosinophil % 1.4 % (0.00-5.0); Eosinophil (Absolute #) 0.11 (0-0.5); Granulocyte Absolute (ANC) 4.33 (1.4-6.9); Granulocytes % 55.2 % (36.0-66.0); Hematocrit 41.9 % (35-47); Hemoglobin 13.5 gm/dl (12.0-16.0); Lymphocyte (Absolute #) 2.91 (1.0-4.6); Lymphocytes % 37.1 % (24.0-44.0); Mean Cell Volume 90.7 fl (78-100); Mean Corpuscular Hemoglobin 29.2 pg (26-32); Mean Corpuscular Hgb Concent. 32.2 g/dl (32-36); Mean Platelet Volume 9.4 fl (6-9.5); Monocyte (Absolute #) 0.46 (0.0-1.3); Monocytes % 5.9 % (0.0-12.0); Platelet Count 219 K/mm3 (150-450); Red Blood Count 4.62 M/mm3 (4.1-5.4); Red Cell Distribution Width 13.6 % (11.5-14.0); White Blood Count 7.8 K/mm3 (4.0-10.5)
[2017-08-25 01:17] LABS: INR 0.96 (0.8-3.0)
[2017-08-25 01:22] LABS: ALBUMIN 4.1 g/dL (3.5-5.0); ALKALINE PHOSPHATASE 84 U/L (38-126); ANION GAP 12.8 MEQ/L (5-15); BLOOD UREA NITROGEN 19 mg/dL (7-17); CHLORIDE 103 mmol/L (98-107); Calcium 9.8 mg/dL (8.4-10.2); Carbon Dioxide 30 mmol/L (22-30); Creatinine 1 1.07 mg/dL (0.52-1.04); Glucose 106 mg/dL (74-106); Potassium 4.1 mmol/L (3.5-5.1); SGOT/AST 13 U/L (14-36); SODIUM 142 mmol/L (137-145)
[2017-08-25 01:23] LABS: SGPT/ALT < 4 U/L (0-35)
[2017-08-25 01:36] LABS: Appearance CLEAR (CLEAR)
[2017-08-25 01:37] LABS: Bilirubin NEGATIVE (NEGATIVE); Blood NEGATIVE Ery/ul (0-5); Glucose NEGATIVE (NEGATIVE); Ketones NEGATIVE (NEGATIVE); Leukocyte Esterase NEGATIVE (NEGATIVE); Nitrite NEGATIVE (NEGATIVE); Protein,Urine Dip NEGATIVE (Negative); Urobilinogen NORMAL mg/dL (0-1)
[2017-08-25] MEDS: APRESOLINE 20 MG/ML INJ IV PRN ×2 (01:39→02:30)
[2017-08-25] MEDS ORDERED: APRESOLINE 20 MG/ML INJ IV PRN ×3 (02:26→08:20)
[2017-08-25] MEDS ORDERED: BABY ASPIRIN 81 MG CHEW PO ONE (02:37)
[2017-08-25] MEDS ORDERED: Toprol-Xl 25MG Tablets PO ONE (02:37)
[2017-08-25] MEDS ORDERED: BABY ASPIRIN 81 MG CHEW ONE (02:42)
[2017-08-25] MEDS ORDERED: Toprol-Xl 25MG Tablets ONE (02:43)
[2017-08-25] MEDS: Zestril 20 MG PO ONE ×2 (03:23→04:09)
[2017-08-25] MEDS ORDERED: Zestril 20 MG PO ONE (03:45)
[2017-08-25] MEDS ORDERED: Zestril 20 MG ONE (03:48)
[2017-08-25 07:16] LABS: BASOPHIL % 0.3 % (0.0-0.4); Basophil (Absolute #) 0.02 (0-0.4); Eosinophil % 1.5 % (0.00-5.0); Granulocyte Absolute (ANC) 4.14 (1.4-6.9); Granulocytes % 62.3 % (36.0-66.0); Hematocrit 40.2 % (35-47); Hemoglobin 13.1 gm/dl (12.0-16.0); Lymphocyte (Absolute #) 1.95 (1.0-4.6); Lymphocytes % 29.3 % (24.0-44.0); Mean Cell Volume 90.5 fl (78-100); Mean Corpuscular Hemoglobin 29.5 pg (26-32); Mean Corpuscular Hgb Concent. 32.6 g/dl (32-36); Mean Platelet Volume 9.5 fl (6-9.5); Monocyte (Absolute #) 0.44 (0.0-1.3); Monocytes % 6.6 % (0.0-12.0); Platelet Count 208 K/mm3 (150-450); Red Blood Count 4.44 M/mm3 (4.1-5.4); Red Cell Distribution Width 13.5 % (11.5-14.0); White Blood Count 6.7 K/mm3 (4.0-10.5)
[2017-08-25 07:47] LABS: ALBUMIN 3.6 g/dL (3.5-5.0); ALKALINE PHOSPHATASE 76 U/L (38-126); ANION GAP 11.9 MEQ/L (5-15); BLOOD UREA NITROGEN 18 mg/dL (7-17); CHLORIDE 107 mmol/L (98-107); Calcium 9.5 mg/dL (8.4-10.2); Carbon Dioxide 27 mmol/L (22-30); Creatinine 1 0.89 mg/dL (0.52-1.04); Glucose 99 mg/dL (74-106); Potassium 4.2 mmol/L (3.5-5.1); SGOT/AST 13 U/L (14-36); SODIUM 143 mmol/L (137-145); Total Protein 6.3 g/dL (6.3-8.2)
[2017-08-25 07:48] LABS: SGPT/ALT 4 U/L (0-35)
--- NOTE | 2017-08-25 08:30 | XRAY ---
Indication: Left facial weakness. Elevated blood pressure. Multiple contiguous axial images obtained through the head without contrast. Comparison: April 17, 2017. Stable normal aging brain as evidenced by global atrophy and minimal periventricular degenerative micro-ischemia. No acute intracranial hemorrhage, abnormal extra-axial fluid collection, or mass effect. Fourth ventricle is midline without hydrocephalus. Bony calvarium intact. Again mild mucosal thickening of the right maxillary sinus with new fluid leveling. Mastoid air cells are clear. Impression: 1. Stable nonacute senile brain. 2. Incidental paranasal sinus disease. Comment: Preliminary interpretation was made by [facility]. No discrepancy. CT DI 63.33
[2017-08-25] MEDS ORDERED: LIPITOR 40MG PO STA (08:35)
--- NOTE | 2017-08-25 08:35 | PCM.HP ---
History of Present Illness - Chief Complaint Chief Complaint: hypertensive urgency Date: 08/25/17 History of Present Illness: is a 82 year old female. she has had labile blood pressure control and orthostatic hypotension with collapsing likely from her parkinsonism. her lisinopril was increased on Monday and was improving her bp but was high again on monday but improved yesterday during the day and on with the highest reading at home 150's until she went to bed and about 2 hours later woke up with numbness on her left face and arm and bp was over 200 on her home machine so she came to the ED. The numbness resolve shortly after arrival and she is asymptomatic this am with no deficits. - Review of Systems Constitutional: No Fever, No Chills Eyes: No Symptoms Ears, Nose, & Throat: No Symptoms Respiratory: No Cough, No Short Of Breath Cardiac: No Chest Pain, No Edema, No Syncope Abdominal/Gastrointestinal: No Abdominal Pain, No Nausea, No Vomiting, No Diarrhea Genitourinary Symptoms: No Dysuria Musculoskeletal: No Back Pain, No Neck Pain Skin: No Rash Neurological: No Dizziness, No Focal Weakness, No Sensory Changes Psychological: No Symptoms Endocrine: No Symptoms Hematologic/Lymphatic: No Symptoms Immunological/Allergic: No Symptoms Medications & Allergies Home Medications: Home Medication List Calcium Carbonate/Vitamin D3 [Caltrate 600 + D Soft Chew Tab] 1 each PO BID 07/28 [History Confirmed 04/17/17] Carbidopa/Levodopa [Carbidopa-Levodopa 25-100 Tab] 25 - 100 mg PO UD 04/17/17 [ History Confirmed 04/17/17] Carbidopa/Levodopa [Carbidopa-Levodopa 25-250 Tab] 1.5 tab PO QAM 04/17/17 [ History Confirmed 04/17/17] Lactulose [Lactulose 20 gm/30Ml Ud Cup] 30 ml PO DAILY 04/17/17 [History Confirmed 04/17/17] Lisinopril 20 mg DAILY 04/17/17 [History Confirmed 04/17/17] Magnesium Oxide [Magnesium] 400 mg PO DAILY 04/17/17 [History Confirmed 04/17/17 ] Meclizine HCl 25 mg PO QID 04/17/17 [History Confirmed 04/17/17] Omeprazole [Prilosec] 20 mg PO DAILY 04/17/17 [History Confirmed 04/17/17] Oxybutynin Chloride [Oxybutynin Chloride ER] 5 mg PO DAILY 04/17/17 [History Confirmed 04/17/17] Pramipexole Di-HCl 0.5 mg [Mirapex 0.5 MG Tablet] 0.5 mg PO TID 04/17/17 [ History Confirmed 04/17/17] Metoprolol Succinate 25 mg Xl* [Toprol-Xl 25MG Tablets] 25 mg PO DAILY #30 tab 04/18/17 [Rx] Allergies/Adverse Reactions: Allergies Allergy/AdvReac Type Severity Reaction Status Date / Time No Known Drug Allergies Allergy Verified 04/17/17 14:01 - Past Medical History Past Medical History: Yes Neurological History: Other ENT History: No Pertinent History Cardiac History: Hypertension Respiratory History: No Pertinent History Endocrine Medical History: No Pertinent History Musculoskelatal History: Arthritis GI Medical History: Gallbladder Disease, Hemorrhoids, Other History: No Pertinent History Pyscho-Social History: No Pertinent History Reproductive Disorders: No Pertinent History Comment: Parkinson's - Female History Are you now?: No - Past Surgical History Past Surgical History: Yes Neuro Surgical History: No Pertinent History Cardiac History: No Pertinent History Respiratory Surgery: No Pertinent History GI Surgical History: Cholecystectomy Genitourinary Surgical Hx: No Pertinent History Musculskeletal Surgical Hx: No Pertinent History Female Surgical History: Hysterectomy Other Surgical History: salavary gland removed - Social History Smoking Status: Never smoker Exposure to second hand smoke: No Alcohol: None Drug Use: none - Physical Exam Vital Signs: Vital Signs - 24 hr Temp Pulse Resp BP Pulse Ox 08/25/17 07:55 196/90 08/25/17 07:12 98.1 F 65 16 204/79 95 08/25/17 04:04 97.7 F 65 18 193/83 98 08/25/17 03:16 59 L 16 151/73 97 08/25/17 02:51 65 16 156/83 08/25/17 02:32 62 18 220/91 96 08/25/17 01:31 57 L 16 218/91 97 08/25/17 01:06 69 16 211/107 97 08/25/17 00:43 68 16 225/107 97 General Appearance: no apparent distress, alert Neurologic Exam: alert, oriented x 3, cooperative, normal mood/affect, nml cerebellar function, nml station & gait, sensation nml, No motor deficits Eye Exam: PERRL/EOMI, eyes nml inspection Ears, Nose, Throat Exam: normal ENT inspection, pharynx normal, moist mucous membranes Neck Exam: normal inspection, non-tender, supple, full range of motion, other ( large midline cyst about 6 cm chronically) Respiratory Exam: normal breath sounds, lungs clear, No respiratory distress Cardiovascular Exam: regular rate/rhythm, normal heart sounds, normal peripheral pulses Gastrointestinal/Abdomen Exam: soft, normal bowel sounds, No tenderness, No mass Back Exam: normal inspection, normal range of motion, No CVA tenderness, No vertebral tenderness Extremity Exam: normal inspection, normal range of motion, pelvis stable Skin Exam: normal color, warm, dry, No rash Lymphatic Exam: No adenopathy Results - Labs Lab/Micro Results: Lab Results-Last 24 Hours 08/25/17 08/25/17 08/25/17 Range/Units 03:45 06:45 06:45 WBC 6.7 (4.0-10.5) K/mm3 RBC 4.44 (4.1-5.4) M/mm3 Hgb 13.1 (12.0-16.0) gm/dl Hct 40.2 (35-47) % MCV 90.5 (78-100) fl MCH 29.5 (26-32) pg MCHC 32.6 (32-36) g/dl RDW 13.5 (11.5-14.0) % Plt Count 208 (150-450) K/mm3 MPV 9.5 (6-9.5) fl Gran % 62.3 (36.0-66.0) % Eos # (Auto) 0.10 (0-0.5) Absolute Lymphs (auto) 1.95 (1.0-4.6) Absolute Monos (auto) 0.44 (0.0-1.3) Lymphocytes % 29.3 (24.0-44.0) % Monocytes % 6.6 (0.0-12.0) % Eosinophils % 1.5 (0.00-5.0) % Basophils % 0.3 (0.0-0.4) % Absolute Granulocytes 4.14 (1.4-6.9) Basophils # 0.02 (0-0.4) Sodium (137-145) mmol/L Potassium (3.5-5.1) mmol/L Chloride (98-107) mmol/L Carbon Dioxide (22-30) mmol/L Anion Gap (5-15) MEQ/L BUN (7-17) mg/dL Creatinine (0.52-1.04) mg/dL Estimated GFR ML/MIN Glucose (74-106) mg/dL Calcium (8.4-10.2) mg/dL Total Bilirubin (0.2-1.3) mg/dL AST (14-36) U/L ALT (0-35) U/L Alkaline Phosphatase (38-126) U/L Troponin I < 0.012 < 0.012 (0.000-0.034) ng/mL Serum Total Protein (6.3-8.2) g/dL Albumin (3.5-5.0) g/dL 08/25/17 Range/Units 06:45 WBC (4.0-10.5) K/mm3 RBC (4.1-5.4) M/mm3 Hgb (12.0-16.0) gm/dl Hct (35-47) % MCV (78-100) fl MCH (26-32) pg MCHC (32-36) g/dl RDW (11.5-14.0) % Plt Count (150-450) K/mm3 MPV (6-9.5) fl Gran % (36.0-66.0) % Eos # (Auto) (0-0.5) Absolute Lymphs (auto) (1.0-4.6) Absolute Monos (auto) (0.0-1.3) Lymphocytes % (24.0-44.0) % Monocytes % (0.0-12.0) % Eosinophils % (0.00-5.0) % Basophils % (0.0-0.4) % Absolute Granulocytes (1.4-6.9) Basophils # (0-0.4) Sodium 143 (137-145) mmol/L Potassium 4.2 (3.5-5.1) mmol/L Chloride 107 (98-107) mmol/L Carbon Dioxide 27 (22-30) mmol/L Anion Gap 11.9 (5-15) MEQ/L BUN 18 H (7-17) mg/dL Creatinine 0.89 (0.52-1.04) mg/dL Estimated GFR > 60.0 ML/MIN Glucose 99 (74-106) mg/dL Calcium 9.5 (8.4-10.2) mg/dL Total Bilirubin 0.50 (0.2-1.3) mg/dL AST 13 L (14-36) U/L ALT 4 (0-35) U/L Alkaline Phosphatase 76 (38-126) U/L Troponin I (0.000-0.034) ng/mL Serum Total Protein 6.3 (6.3-8.2) g/dL Albumin 3.6 (3.5-5.0) g/dL Assessment/Plan (1) TIA (transient ischemic attack) Current Visit: Yes Status: Acute Assessment & Plan: symptoms resolved with the focal numbness lasting several hours will get the MRI of brain carotid ultrasound telemetry, echo reviewed titrate blood pressure medication she has f/u with tilt table testing for her orthostatic symptoms next week from parkinsonism and has f/u with cardiology for her labile htn as well (2) Hypertensive urgency Current Visit: Yes Status: Acute Code(s): I16.0 - HYPERTENSIVE URGENCY (3) Parkinson disease Current Visit: Yes Status: Chronic Code(s): G20 - PARKINSON'S DISEASE
[2017-08-25] MEDS ORDERED: NORVASC 5 MG PO SCH (10:00)
--- NOTE | 2017-08-25 10:08 | XRAY ---
Indication: Left arm and left mouth weakness. Elevated blood pressure. Sagittal, coronal, and axial MRI brain was performed without contrast using T1, T2, FLAIR, diffusion, and ADC sequences. Comparison: None Age-appropriate global atrophy and minimal periventricular degenerative micro-ischemia signal bilaterally. Prominent bilateral basal ganglia Virchow Vahe spaces. No acute intracranial hemorrhage, abnormal extra-axial fluid collection, or mass effect. Diffusion images are negative for restricted signal. Fourth ventricle is midline without hydrocephalus. 7/8 cranial nerve complex bilaterally symmetric. Normal-appearing craniocervical junction and sella turcica. There is mild mucosal thickening of right maxillary sinus. Impression: 1. Normal aging brain including atrophy and degenerative micro-ischemia. 2. No acute intracranial abnormalities or evidence for evolving large vessel territorial stroke. 3. Incidental right maxillary sinus disease.
[2017-08-25] MEDS: ECOTRIN 81 MG PO SCH (11:10)
[2017-08-25] MEDS: Toprol-Xl 25MG Tablets PO SCH (11:10)
[2017-08-25] MEDS: Zestril 20 MG PO SCH (11:10)
--- NOTE | 2017-08-25 11:27 | XRAY ---
Indication: TIA. Two-dimensional sonogram and color Doppler imaging of the carotid arteries of the neck performed. Comparison: None Examination of the right carotid circulation demonstrates marked common carotid artery tortuosity. At the level of the bulb, there is mild heterogeneous plaquing slightly extending to the origin of the external carotid artery and lesser degree origin of the internal carotid artery. PSV of the CCA is 139 cm/s. PSV of the ICA is 77 cm/s. ICA/CCA ratio is 0.6. Normal antegrade vertebral artery flow. Examination of the left carotid circulation demonstrates very minimal calcified plaquing in the external carotid artery. PSV of the CCA is 88 cm/s. PSV of the ICA is 77 cm/s. ICA/CCA ratio is 0.9. Normal antegrade vertebral artery flow. 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 Impression: 1. Markedly tortuous right common carotid artery. Mild heterogeneous plaquing at the level of the bulb extending into the origin of internal and external carotid arteries. Velocity measurements and ratios are negative for hemodynamically significant flow-limiting stenosis. 2. New minimal left external carotid artery calcified plaquing without critical stenosis/obstruction. 3. Incidental right neck hypoechogenic complex cystic mass as detailed. Rule out thyroglossal duct cyst.
[2017-08-25] MEDS ORDERED: LACTULOSE 20 GM/30ML UD CUP PO PRN (11:56)
[2017-08-25 12:14] LABS: Cholesterol 214 mg/dL (50-200); HDL CHOLESTEROL 54 mg/dL (40-60); TRIGLYCERIDE 174 mg/dL (30-150)
[2017-08-25 12:25] LABS: LDL, DIRECT 112 mg/dL (30-100)
[2017-08-25 12:50] LABS: TROPONIN < 0.012 ng/mL (0.000-0.034)
[2017-08-25] MEDS: Sinemet 25/100 MG PO SCH ×3 (12:57→21:44)
[2017-08-25] MEDS: Ditropan XL 5 MG PO SCH (12:57)
[2017-08-25] MEDS: Protonix 40MG Tablet PO SCH (12:57)
[2017-08-25] MEDS: MAG-OX 400 PO SCH (12:57)
[2017-08-25] MEDS: Mirapex 0.5 MG Tablet PO SCH ×3 (12:57→21:43)
[2017-08-25] MEDS: Calcium 500MG W/Vit D Tablet PO SCH (21:43)
[2017-08-25] MEDS ORDERED: VITAMIN D3 PO SCH (22:00)
[2017-08-25] MEDS ORDERED: [UNRECOGNIZED DRUG - OTHER] PO SCH (22:00)
[2017-08-25] MEDS ORDERED: CALCIUM CARBONATE PO SCH (22:00)
[2017-08-26] MEDS: Zestril 20 MG PO SCH (09:30)
[2017-08-26] MEDS: ECOTRIN 81 MG PO SCH (09:30)
[2017-08-26] MEDS: Calcium 500MG W/Vit D Tablet PO SCH (09:30)
[2017-08-26] MEDS: Ditropan XL 5 MG PO SCH (09:30)
[2017-08-26] MEDS: Mirapex 0.5 MG Tablet PO SCH (09:30)
[2017-08-26] MEDS: Protonix 40MG Tablet PO SCH (09:30)
[2017-08-26] MEDS: MAG-OX 400 PO SCH (09:30)
[2017-08-26] MEDS: Toprol-Xl 25MG Tablets PO SCH (09:30)
[2017-08-26] MEDS: Sinemet 25/100 MG PO SCH (09:31)
[2017-08-26] MEDS ORDERED: TOLTERODINE TARTRATE 2 MG PO SCH (10:00)
[2017-08-26] MEDS ORDERED: NORVASC 5 MG PO SCH (10:00)
--- NOTE | 2017-08-26 11:00 | PCM.DCORD ---
- Discharge Discharge Date: 08/26/17 Disposition: Home, Self-Care Condition: Stable Prescriptions: New Aspirin EC 81 mg [Ecotrin 81 mg] 81 mg PO DAILY #30 tablet Amlodipine Besylate 5 mg [Norvasc 5 mg] 5 mg PO DAILY #30 tablet Continue Omeprazole [Prilosec] 20 mg PO DAILY Lisinopril 20 mg PO DAILY Lactulose [Lactulose 20 gm/30Ml Ud Cup] 30 ml PO DAILY PRN PRN Reason: Constipation Calcium Carbonate/Vitamin D3 [Caltrate 600 + D Soft Chew Tab] 1 each PO BID Pramipexole Di-HCl 0.5 mg [Mirapex 0.5 MG Tablet] 0.5 mg PO TID Magnesium Oxide [Magnesium] 400 mg PO DAILY Metoprolol Succinate 25 mg Xl* [Toprol-Xl 25MG Tablets] 25 mg PO DAILY # 30 tab Tolterodine Tartrate [Tolterodine Tartrate ER] 2 mg PO DAILY Carbidopa/Levodopa [Carbidopa-Levo 25-100 Tab] 1.5 tab PO QID Additional Instructions: keep appointment for tilt table test and appointment with Dr. Ferrer already scheduled Follow up with: RD MEYERS [Primary Care Provider] - 1 Week TORRES FERRER [ACTIVE STAFF] - 1 Week
[2017-08-26 11:28] VITALS: BP 130/62; PULSE 66; O2SAT 94
--- NOTE | 2017-08-27 17:46 | PCM.DS ---
Discharge Summary Date of Admission: 08/25/17 03:31 Date of Discharge: 08/26/17 Admitting Physician: RD MEYERS Primary Care Provider: RD MEYERS Allergies Allergies No Known Drug Allergies Allergy (Verified 04/17/17 14:01) Hospital Summary - Hospital Course Hospital Course: Mrs. Avila has had labile hypertension and orthostatic hypotension and was having episodes of syncope and presyndope and has been having her bp medications adjusted. She states she is taking her medication as prescribed but there was some difficulty in her and her stating exactly how when and what she was taking hwen she presented. She has days when her bp is in the low normal range and days it is 200's at home. She was having normal bp the day of presentation when she checked it early in the day and went to bed and awoke later with left face and arm numbness her took her bp and it was over 200 systolic and she presented to the ED. Her numbness persisted for about 2 hours she thinks and has completely resolved now with no recurrence or other focal deficits. MRI revealed no stroke carotid u/s shows no flow limiting stenosis and she has had recent echocardiogram and telemetry showed no events. She was feeling well and she was restarted on her home bp medications with the addition of 5 mg of amlodipine and she had normal blood pressure and no orthostatic symptoms with normal orthostatic blood pressures for 24 hours. She was discharged to home and will keep the cardiology appointment with Dr. Ferrer and the tilt table test as well. - Vitals & Intake/Output Vital Signs: Vital Signs Temperature 97.8 F 08/26/17 11:27 Pulse Rate 66 08/26/17 11:27 Respiratory Rate 18 08/26/17 11:27 Blood Pressure 130/62 08/26/17 11:27 O2 Sat by Pulse Oximetry 94 L 08/26/17 11:27 Intake & Output: Intake & Output 08/25/17 08/26/17 08/27/17 08/28/17 11:59 11:59 11:59 11:59 Intake Total 240 1560 Output Total 700 500 Balance -460 1060 Weight 66.7 kg 68.2 kg - Lab Result Diagrams: 08/25/17 06:45 08/25/17 06:45 Discharge Exam General Appearance: no apparent distress, alert Neurologic Exam: alert, oriented x 3, cooperative, normal mood/affect, nml cerebellar function, sensation nml, No motor deficits Skin Exam: normal color, warm, dry Eye Exam: PERRL, EOMI, eyes nml inspection Ears, Nose, Throat Exam: normal ENT inspection, pharynx normal, moist mucous membranes Neck Exam: normal inspection, non-tender, supple, full range of motion Respiratory Exam: normal breath sounds, lungs clear, No respiratory distress Cardiovascular Exam: regular rate/rhythm, normal heart sounds Gastrointestinal/Abdomen Exam: soft, No tenderness, No mass Extremity Exam: normal inspection, normal range of motion Back Exam: normal inspection, normal range of motion, No CVA tenderness, No vertebral tenderness Pelvic Exam: deferred Rectal Exam: deferred Final Diagnosis/Problem List - Final Discharge Diagnosis/Problem (1) TIA (transient ischemic attack) Status: Acute (2) Hypertensive urgency Status: Acute (3) Parkinson disease Status: Chronic (4) Thyroglossal duct cyst Status: Chronic - Discharge Disposition: Home, Self-Care Condition: Stable Prescriptions: New Aspirin EC 81 mg [Ecotrin 81 mg] 81 mg PO DAILY #30 tablet Amlodipine Besylate 5 mg [Norvasc 5 mg] 5 mg PO DAILY #30 tablet Continue Omeprazole [Prilosec] 20 mg PO DAILY Lisinopril 20 mg PO DAILY Lactulose [Lactulose 20 gm/30Ml Ud Cup] 30 ml PO DAILY PRN PRN Reason: Constipation Calcium Carbonate/Vitamin D3 [Caltrate 600 + D Soft Chew Tab] 1 each PO BID Pramipexole Di-HCl 0.5 mg [Mirapex 0.5 MG Tablet] 0.5 mg PO TID Magnesium Oxide [Magnesium] 400 mg PO DAILY Metoprolol Succinate 25 mg Xl* [Toprol-Xl 25MG Tablets] 25 mg PO DAILY # 30 tab Tolterodine Tartrate [Tolterodine Tartrate ER] 2 mg PO DAILY Carbidopa/Levodopa [Carbidopa-Levo 25-100 Tab] 1.5 tab PO QID Instructions: High Blood Pressure in Adults Additional Instructions: keep appointment for tilt table test and appointment with Dr. Ferrer already scheduled Follow up with: RD MEYERS [Primary Care Provider] - 06/25/18 10:30 am TORRES FERRER [ACTIVE STAFF] - 1 Week Forms: Discharge Instructions
== END 2017-08-26 11:49 | disposition home or self-care (01) ==
LOC: ED 00:27 → MED SURG 03:31
PROVIDERS: ADMIT Family Medicine; ATTEND Family Medicine
DX: G45.9 Transient cerebral ischemic attack, unspecified (principal); I16.9 Hypertensive crisis, unspecified; G20 Parkinson's disease
CPT/HCPCS: 36000; 36415; 70450; 70551; 80053; 80061; 81002; 82962; 83721; 84484; 85025; 85610; 85730; 93005; 93041; 93268; 93880; 96374; 96376; 99285; J0360; A9270-GY; G0378

== ENCOUNTER 2019-03-26 07:57 | Day surgery (SDC) | payer MEDICARE ==
[~2019-03-26 07:57] MED LIST: Ak-Dilate OPHTHALMIC*** 1.065 ML, Cyclogyl 1% OPHTH SOL 5 ML 1.065 ML, GATIFLOXACIN 0.5... OP ONE; Lactated Ringers 1,000 ML IV ONE; Lactated Ringers 1,000 ML IV SCH; NON-FORMULARY ITEM OP ONE; TETRACAINE 0.5% STERI-UNIT SOL OP ONE
[2019-03-26] MEDS: APRESOLINE 20 MG/ML INJ IV ONE ×2 (08:41→09:12)
[2019-03-26] MEDS ORDERED: Zofran 4 MG/2 ML VIAL IV PRN (09:00)
[2019-03-26] MEDS ORDERED: ACETAZOLAMIDE 250 MG TABLET PO ONE (09:00)
[2019-03-26] MEDS ORDERED: Epinephrine Preservative Free 1 MG/ML INTRAOP ONE (10:00)
[2019-03-26] MEDS ORDERED: LIDOCAINE HCL 1% AMPUL 5 ML IJ ONE (10:00)
[2019-03-26] MEDS ORDERED: BETADINE 5% OPHTHALMIC 30 ML OP ONE (10:00)
[2019-03-26] MEDS ORDERED: BSS 500 ML, Fortaz/Tazicef 1 GM** 0.2 G IO ONE ×2 (10:00)
[2019-03-26] MEDS ORDERED: DIPRIVAN 200 MG/20 ML IV ONE (10:55)
[2019-03-26 11:42] VITALS: PULSE 72; O2SAT 98
--- NOTE | 2019-03-26 11:46 | OP ---
DATE/TIME OF OPERATION: 03/26/2019 1056 TIME DICTATED: 1130 PREOPERATIVE DIAGNOSIS: Senile cataract of left eye. POSTOPERATIVE DIAGNOSIS: Senile cataract of left eye. SURGEON: Curt Michel MD SPECIAL EDUCATION RESOURCE ROOM TEACHER: None. OPERATION: Cataract extraction of left eye with an intraocular lens implant. STANDARD __X__ COMPLEX ANESTHESIA: MAC. ___X__ Monitored anesthesia care in combination with topical and intra-cameral anesthesia (because of the established specific risk of reflux, arrhythmias, or an anxiety attack associated with ocular manipulation as well as difficulty of the visual arts teacher to manage such potentially catastrophic events while simultaneously attempting to complete the surgical procedure, it was deemed necessary for the patient's safety to have an anesthesiologist or a nurse buyer broker present during the procedure whenever possible. The anesthesiologist or the nurse buyer broker was utilized to monitor and regulate the intravenous sedation of the patient, so the patient was cooperative, relaxed, and comfortable). Topical anesthesia using Tetracaine eye drops together with intra cameral anesthesia using Lidocaine 1% MPF. The nurse was utilized to monitor the patient. ANESTHESIA PROVIDER: Yifan Weir CRNA. COMPLICATIONS: None. BLOOD LOSS: None. INDICATIONS: The patient is undergoing cataract surgery in the hopes of eliminating the visual complaints and difficulty. PROCEDURE: After arriving at the facility's outpatient surgery area, an IV was started; the patient was given 5 mg of p.o. Versed. (If an anesthesia provider was not monitoring the patient) The patient was then given topical anesthetic Tetracaine eye drops. A cotton pellet was soaked into a solution of a combination of Zymaxid 0.5%, Kevin-Synephrine 2.5% and Ocufen (other drops might have been substituted referenced in the patient's record). The pellet was inserted by the RN into the lower conjunctival cul-de-sac with a sterile forceps and left for 20 minutes. The pellet was then removed by the RN with a sterile forceps before taking the patient to the operating room. The preoperative area nurse identified the patient and marked the correct eye to be operated on. I identified the correct eye to be operated on and marked it appropriately in the outpatient surgery area. The patient was then taken into the operating room. Tetracaine eye drops were installed again in the correct eye. The eyelids and the lashes and the lid margins were scrubbed with Betadine solution. One drop of the diluted Betadine solution was placed in the conjunctival cul-de-sac for 45 seconds and then was irrigated. A drop of Tetracaine Gel was placed in the conjunctival cul-de-sac. The patient's forehead was taped to secure it during the procedure. The patient was monitored. The patient was then draped in the usual way for this procedure. An eye speculum was used to separate the eyelids. The eye was then fixated and a temporal 2.5 mm incision was made in the clear cornea temporally at the limbus. Through the incision, 0.25 cc of 1% non-preserved lidocaine was injected into the anterior chamber for intracameral anesthesia. The anterior chamber was then filled with viscoelastic. The pupil was small. I felt that it would be safer to mechanically dilate the pupil. A Malyugin ring was used at this point which dilated the pupil. That was removed at the end of the procedure prior to aspiration of the viscoelastic from the anterior chamber and posterior to the intraocular lens implant. The cataract had a great amount of cortical changes. That rendered seeing the anterior capsule difficult for a safe performance of an anterior capsulotomy. I injected an air bubble into the anterior chamber. I then injected 1 ML of vision blue solution into the anterior chamber. The vision blue solution was irrigated from the anterior chamber after 30 seconds. The anterior capsule was stained which facilitated performing the anterior capsulotomy safely. After that was completed, a cystotome was introduced into the anterior chamber and a round anterior capsulotomy was performed. The capsule was removed by a forceps. Hydrodissection was next carried utilizing a 25-gauge cannula and balanced salt solution to delineate the cortical material from the capsule and the nucleus from the cortical material. The nucleus was rotated freely into the capsular bag with no difficulty. The phaco tip of the [employer] Phacoemulsifier was introduced into the anterior chamber and two grooves were made into the nucleus 90 degrees apart. Using two spatulas resulted into the nucleus being fractured into four quadrants. The phaco tip was then used to remove each quadrant of the nucleus. Viscoelastic was used during this process to protect the corneal endothelium. Once the entire nucleus was removed, the phaco tip then was removed and the irrigation tip was introduced into the eye and the cortex was removed. The posterior capsule was polished. It was noticed that there was a tear into the posterior capsule with few vitreous strands into the pupil plan. An anterior vitrectomy was performed. A 23.50 diopter, SN60WF, posterior chamber lens implant, was inspected and found to be grossly normal. The implant was inserted into the implant injector cartridge; Viscoelastic again was introduced into the anterior chamber, which filled the capsular bag. The implant injector's cartridge tip was placed at the limbal wound and the posterior chamber implant was released into the capsular bag and rotated appropriately. The implant was found to be into the capsular bag and it was centered. 0.2 ml of Tri-Moxi was introduced via 27 gauge cannula into the vitreous cavity through the ciliary processes. Viscoelastic was aspirated from the anterior chamber and posterior to the intraocular lens implant from the capsular bag using the irrigating tip. The anterior chamber was irrigated and filled with 5 cc antibiotic solution (500 cc of BSS plus 2 ml of Fortaz 100 mg/ml) ( if patient was not allergic to the medication). The lips of the corneal incision were hydrated using BSS solution. The anterior chamber was checked and found to be water tight. ___X__ One drop each of antibiotic, steroid and NSAID drops (refer to chart for drops used) were placed in the conjunctival cul-de-sac of the operated eye. Patient tolerated the procedure quite well and left the operating room in satisfactory condition. DISCHARGE SUMMARY: The patient was released in stable condition. The patient and those with the patient were given an instruction sheet as of how to care for the eye after surgery as well as counseling on any abnormal laboratory studies by the postoperative RN. The patient was also given an appointment card for follow-up in the office and is to call immediately for any difficulties including but not limited to pain in the eye, decreased vision, discharge from the eye, headache and or fever. DISCHARGE DIAGNOSIS: Pseudophakia of left eye.
[2019-03-26 12:37] VITALS: BP 148/74
== END 2019-03-26 12:30 | disposition home or self-care (01) ==
LOC: SDC 07:57
PROVIDERS: ATTEND Ophthalmology
DX: H25.812 Combined forms of age-related cataract, left eye (principal); I10 Essential (primary) hypertension; G20 Parkinson's disease; E07.9 Disorder of thyroid, unspecified; E78.00 Pure hypercholesterolemia, unspecified; Z79.899 Other long term (current) drug therapy
CPT/HCPCS: 99100; C1780; J0171; J0360; J2704; A9270-GY

== ENCOUNTER 2019-04-30 09:20 | Day surgery (SDC) | payer MEDICARE ==
[~2019-04-30 09:20] MED LIST changes: +ACETAZOLAMIDE 250 MG TABLET PO ONE; -Lactated Ringers 1,000 ML IV ONE; +Zofran 4 MG/2 ML VIAL IV PRN
[2019-04-30] MEDS ORDERED: Lactated Ringers 1,000 ML IV ONE (09:52)
[2019-04-30] MEDS ORDERED: Epinephrine Preservative Free 1 MG/ML INTRAOP ONE (10:00)
[2019-04-30] MEDS ORDERED: BSS 500 ML, Fortaz/Tazicef 1 GM** 0.2 G IO ONE ×2 (10:00)
[2019-04-30] MEDS ORDERED: BETADINE 5% OPHTHALMIC 30 ML OP ONE (10:00)
[2019-04-30] MEDS ORDERED: LIDOCAINE HCL 1% AMPUL 5 ML IJ ONE (10:00)
[2019-04-30] MEDS ORDERED: APRESOLINE 20 MG/ML INJ IV PRN (10:01)
[2019-04-30] MEDS ORDERED: APRESOLINE 20 MG/ML INJ ONE (10:08)
[2019-04-30] MEDS: TETRACAINE 0.5% STERI-UNIT SOL OP ONE ×2 (11:04→11:32)
[2019-04-30 13:17] VITALS: O2SAT 98
[2019-04-30 13:33] VITALS: BP 150/79; PULSE 67
--- NOTE | 2019-04-30 13:57 | OP ---
DATE/TIME OF OPERATION: 04/30/2019 1210 TIME DICTATED: 1256 PREOPERATIVE DIAGNOSIS: Senile cataract of right eye. POSTOPERATIVE DIAGNOSIS: Senile cataract of right eye. SURGEON: Curt Michel MD MACHINE PROGRAMMER: None. OPERATION: Cataract extraction of right eye with an intraocular lens implant. STANDARD __X__ COMPLEX ANESTHESIA: MAC. ___X___ Monitored anesthesia care in combination with topical and intra-cameral anesthesia (because of the established specific risk of reflux, arrhythmias, or an anxiety attack associated with ocular manipulation as well as difficulty of the industrial commercial groundskeeper to manage such potentially catastrophic events while simultaneously attempting to complete the surgical procedure, it was deemed necessary for the patient's safety to have an anesthesiologist or a nurse marine engine mechanic present during the procedure whenever possible. The anesthesiologist or the nurse marine engine mechanic was utilized to monitor and regulate the intravenous sedation of the patient, so the patient was cooperative, relaxed, and comfortable). Topical anesthesia using Tetracaine eye drops together with intra cameral anesthesia using Lidocaine 1% MPF. The nurse was utilized to monitor the patient. ANESTHESIA PROVIDER: Yifan Weir CRNA. COMPLICATIONS: None. BLOOD LOSS: None. INDICATIONS: The patient is undergoing cataract surgery in the hopes of eliminating the visual complaints and difficulty. PROCEDURE: After arriving at the facility's outpatient surgery area, an IV was started; the patient was given 5 mg of p.o. Versed. (If an anesthesia provider was not monitoring the patient) The patient was then given topical anesthetic Tetracaine eye drops. A cotton pellet was soaked into a solution of a combination of Zymaxid 0.5%, Kevin-Synephrine 2.5% and Ocufen (other drops might have been substituted referenced in the patient's record). The pellet was inserted by the RN into the lower conjunctival cul-de-sac with a sterile forceps and left for 20 minutes. The pellet was then removed by the RN with a sterile forceps before taking the patient to the operating room. The preoperative area nurse identified the patient and marked the correct eye to be operated on. I identified the correct eye to be operated on and marked it appropriately in the outpatient surgery area. The patient was then taken into the operating room. Tetracaine eye drops were installed again in the correct eye. The eyelids and the lashes and the lid margins were scrubbed with Betadine solution. One drop of the diluted Betadine solution was placed in the conjunctival cul-de-sac for 45 seconds and then was irrigated. A drop of Tetracaine Gel was placed in the conjunctival cul-de-sac. The patient's forehead was taped to secure it during the procedure. The patient was monitored. The patient was then draped in the usual way for this procedure. An eye speculum was used to separate the eyelids. The eye was then fixated and a temporal 2.5 mm incision was made in the clear cornea temporally at the limbus. Through the incision, 0.25 cc of 1% non-preserved lidocaine was injected into the anterior chamber for intracameral anesthesia. The anterior chamber was then filled with viscoelastic. The pupil was small. I felt that it would be safer to mechanically dilate the pupil. A Malyugin ring was used at this point which dilated the pupil. That was removed at the end of the procedure prior to aspiration of the viscoelastic from the anterior chamber and posterior to the intraocular lens implant. The cataract had a great amount of cortical changes. That rendered seeing the anterior capsule difficult for a safe performance of an anterior capsulotomy. I injected an air bubble into the anterior chamber. I then injected 1 ML of vision blue solution into the anterior chamber. The vision blue solution was irrigated from the anterior chamber after 30 seconds. The anterior capsule was stained which facilitated performing the anterior capsulotomy safely. After that was completed, a cystotome was introduced into the anterior chamber and a round anterior capsulotomy was performed. The capsule was removed by a forceps. Hydrodissection was next carried utilizing a 25-gauge cannula and balanced salt solution to delineate the cortical material from the capsule and the nucleus from the cortical material. The nucleus was rotated freely into the capsular bag with no difficulty. The phaco tip of the [employer] Phacoemulsifier was introduced into the anterior chamber and two grooves were made into the nucleus 90 degrees apart. Using two spatulas resulted into the nucleus being fractured into four quadrants. The phaco tip was then used to remove each quadrant of the nucleus. Viscoelastic was used during this process to protect the corneal endothelium. Once the entire nucleus was removed, the phaco tip then was removed and the irrigation tip was introduced into the eye and the cortex was removed. The posterior capsule was polished. It was noticed that there was a tear into the posterior capsule with few vitreous strands into the pupil plan. An anterior vitrectomy was performed. A 24.00 diopter, SN60WF, posterior chamber lens implant, was inspected and found to be grossly normal. The implant was inserted into the implant injector cartridge; Viscoelastic again was introduced into the anterior chamber, which filled the capsular bag. The implant injector's cartridge tip was placed at the limbal wound and the posterior chamber implant was released into the capsular bag and rotated appropriately. The implant was found to be into the capsular bag and it was centered. 0.2 ml of Tri-Moxi was introduced via 27 gauge cannula into the vitreous cavity through the ciliary processes. Viscoelastic was aspirated from the anterior chamber and posterior to the intraocular lens implant from the capsular bag using the irrigating tip. The anterior chamber was irrigated and filled with 5 cc antibiotic solution (500 cc of BSS plus 2 ml of Fortaz 100 mg/ml) ( if patient was not allergic to the medication). The lips of the corneal incision were hydrated using BSS solution. The anterior chamber was checked and found to be water tight. ___X___ One drop each of antibiotic, steroid and NSAID drops (refer to chart for drops used) were placed in the conjunctival cul-de-sac of the operated eye. Patient tolerated the procedure quite well and left the operating room in satisfactory condition. DISCHARGE SUMMARY: The patient was released in stable condition. The patient and those with the patient were given an instruction sheet as of how to care for the eye after surgery as well as counseling on any abnormal laboratory studies by the postoperative RN. The patient was also given an appointment card for follow-up in the office and is to call immediately for any difficulties including but not limited to pain in the eye, decreased vision, discharge from the eye, headache and or fever. DISCHARGE DIAGNOSIS: Pseudophakia of right eye.
== END 2019-04-30 13:35 | disposition home or self-care (01) ==
LOC: SDC 09:20
PROVIDERS: ATTEND Ophthalmology
DX: H25.9 Unspecified age-related cataract (principal); E78.00 Pure hypercholesterolemia, unspecified; I10 Essential (primary) hypertension; E07.9 Disorder of thyroid, unspecified; G20 Parkinson's disease
CPT/HCPCS: 99100; C1780; J0171; J0360; A9270-GY

== ENCOUNTER 2020-11-12 07:56 | Day surgery (SDC) | payer MEDICARE ==
--- NOTE | 2020-11-06 14:12 | HP ---
DATE: 11/12/2020 HISTORY OF PRESENT ILLNESS: The patient is an 85 y/o female presenting with an abnormal PET scan. There has been a reported moderate sized focus of gastric uptake in esophageal hiatus. It looks like she has a moderate sized hiatal hernia. It is indicated that this cannot be ruled out as a gastric neoplasm. Also, reporting some multiple bowel uptake apple core-like thickening multiple areas of the bowel. Cannot exclude colonic neoplasm. Possible short segment of intussusception. Further endoscopy recommended. The patient does report some constipation. Other than that, feeling full at times is reported. Do not have report of patient if she has had prior endoscopy in the past. PAST MEDICAL HISTORY: Parkinson's, hypertension, hyperlipidemia, reflux. CURRENT MEDICATIONS: Pramipexole, metoprolol, trospium, Lisinopril, carbidopa, levodopa, atorvastatin, aspirin, calcium, omeprazole, vitamin B12, MiraLax. ALLERGIES: NONE. PAST SURGERIES: Hysterectomy, cholecystectomy, surgery for a saliva gland excision. FAMILY HISTORY: Heart disease, cancer unspecified. SOCIAL HISTORY: None. REVIEW OF SYSTEMS: CONSTITUTIONAL: Denies fever, chills. CHEST: Denies shortness of breath. CVS: Denies chest pain. ABDOMEN: Soft. PHYSICAL EXAMINATION: GENERAL: No acute distress. CHEST: Nonlabored. No shortness of breath. CVS: Regular rate and rhythm. ABDOMEN: Soft. NEURO: Alert. PSYCH: Appropriate. IMPRESSION: 1. ABNORMAL PET SCAN WITH UPTAKE IN THE UPPER AND LOWER GI. PLAN: EGD and colonoscopy with Dr. Sher Carlos. This report was dictated for Dr. Carlos by Rashida Puckett NP.
[2020-11-12] MEDS ORDERED: Lactated Ringers 1,000 ML IV SCH (09:00)
[2020-11-12] MEDS ORDERED: DIPRIVAN 200 MG/20 ML IV ONE ×2 (11:04→11:21)
[2020-11-12] MEDS ORDERED: Lactated Ringers 0 ML IV ONE (11:24)
[2020-11-12 12:14] VITALS: PULSE 64
[2020-11-12 12:27] VITALS: O2SAT 96
[2020-11-12] MEDS ORDERED: APRESOLINE 20 MG/ML INJ IV ONE (13:08)
[2020-11-12] MEDS ORDERED: APRESOLINE 20 MG/ML INJ ONE (13:15)
--- NOTE | 2020-11-12 13:56 | OP ---
SURGERY DATE/TIME: 11/12/2020 1106 PREOPERATIVE DIAGNOSIS: The patient has a very high level of uptake in the stomach and the gastroesophageal junction. She has a very high uptake in the bowels. PET scan was reviewed. She presents today for upper and lower examination. 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 2) Severe diverticulosis, severe internal hemorrhoids, severe external hemorrhoids. The ileocecal valve was slightly prominent but was normal. PROCEDURES: 1) EGD with cold biopsy x4. 2) Colonoscopy complete to cecum. SURGEON: Sher Carlos M.D. ANESTHESIA: MAC. COMPLICATIONS: None. CONDITION: Stable. INDICATION: The patient had a PET scan positive both in stomach and in the bowels. DESCRIPTION OF PROCEDURE: She is taken to endoscopy. Left lateral decubitus position. Pharyngoesophageal junction cannulated. There was some retained food in the upper scope and this was basically washed down into the stomach. At this time the esophagus was satisfactory. There was grade 2/4 gastroesophageal reflux disease. There was chronic antritis. There were chronic fundal polyps. Two areas of antritis were biopsied and two polyps were biopsied. They were biopsied with cold biopsy forceps. The pylorus was satisfactory. Duodenal bulb satisfactory. Second portion satisfactory. The scope withdrawn looped upon itself. Gastroesophageal junction there was a hiatal hernia but it was satisfactory. Anal digital examination severe hemorrhoids. Scope introduced. Scope advanced up to the ileocecal valve. Ileocecal valve was slightly generous but normal. Base of the cecum normal. Appendiceal orifice not visible. Base of the cecum, ileocecal valve, ascending, hepatic, transverse, splenic, descending, sigmoid, rectum, anus severe diverticulosis, severe internal hemorrhoids, severe external hemorrhoids. The patient tolerated the procedure satisfactorily. Follow up probably not necessary as she is 85.
[2020-11-12 14:49] VITALS: BP 177/77
== END 2020-11-12 14:35 | disposition home or self-care (01) ==
LOC: SDC 07:56
PROVIDERS: ATTEND Surgery
DX: K29.60 Other gastritis without bleeding (principal); R93.3 Abnormal findings on diagnostic imaging of other parts of digestive tract; K57.30 Diverticulosis of large intestine without perforation or abscess without bleeding; K64.4 Residual hemorrhoidal skin tags; K64.8 Other hemorrhoids; K31.7 Polyp of stomach and duodenum; Z79.899 Other long term (current) drug therapy
CPT/HCPCS: 88305; 88312; 99100; J0360; J2704

== ENCOUNTER 2020-12-20 08:57 | Emergency (ER) | payer MEDICARE ==
[2020-12-20 10:18] LABS: COVID AG -BINAX NOW RAPID TEST NEGATIVE (NEGATIVE)
--- NOTE | 2020-12-20 13:37 | ERPHSYRPT ---
- History of Present Illness Time Seen by Provider: 12/20/20 08:57 Source: family Exam Limitations: clinical condition Patient Subjective Stated Complaint: unresponsive-DOA Triage Nursing Assessment: This nurse summoned per registration to assist with patient out of vehicle. Upon assessment patient not breathing and no pulse noted. Dontrell Calderon confirmed no heart beat at this time. Family updated and wished CPR not to be started. Patient was assisted onto bed with assist of 2 and brought into ED where was confirmed per Dr. Nesbitt at 0857. Physician History: 85 years old is brought in the ER by family after she was not feeling well for the last few days with flulike symptoms. Family reports patient was going in and out of consciousness. Emergency department help was called to get her out of the car and patient was not breathing and no pulse, cold clammy extremities and no pupillary response. On arrival inside ER patient has no heartbeat. CPR was not raised by family. Patient is pronounced at 857. Allergies/Adverse Reactions: No Known Drug Allergies Allergy (Verified 11/06/20 09:40) Home Medications: Calcium Carbonate/Vitamin D3 [Caltrate 600 + D Soft Chew Tab] 600 mg PO BID 04/17/17 [History] Pramipexole Di-HCl 0.5 mg [Mirapex 0.5 MG Tablet] 0.25 mg PO BID 04/17/17 [History] lisinopriL [Lisinopril] 5 mg PO DAILY 04/17/17 [History] Carbidopa/Levodopa [Carbidopa-Levo 25-100 Tab] 1.5 tab PO QID 08/25/17 [History] Atorvastatin Calcium [Lipitor] 10 mg PO HS 03/21/19 [History] Meclizine HCl 25 mg [Antivert 25 mg] 25 mg PO QID 03/21/19 [History] Trospium Chloride [Trospium Chloride ER] 60 mg PO DAILY 03/21/19 [History] Cyanocobalamin (Vitamin B-12) [Cyanocobalamin Injection] 1,000 mcg IM UD 11/06/20 [History] Fluticasone/Umeclidin/Vilanter [Trelegy Ellipta 100-62.5-25] 1 puff IH DAILY 11/06/20 [History] Omeprazole 20 mg PO DAILY 11/06/20 [History] Polyethylene Glycol 3350 [Miralax] 17 gm PO DAILY PRN PRN 11/06/20 [History] Hx Tetanus, Diphtheria Vaccination/Date Given: No Hx Influenza Vaccination/Date Given: Yes Hx Pneumococcal Vaccination/Date Given: Yes Travel Risk - International Travel Have you traveled outside of the country in past 3 weeks: No - Coronavirus Screening Are you exhibiting any of the following symptoms?: No Close contact with a COVID-19 positive Pt in past 14-21 Days: No - Vaccine Status Have you recieved a Covid-19 vaccination: Yes 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 - Vaccination Dates Date of 2cond Vaccination (if applicable): DOA Dates if Unknown: unknown - Review of Systems All Other Systems: Unable due to condition - Past Medical History Pertinent Past Medical History: Yes Neurological History: Other ENT History: Cataracts Cardiac History: High Cholesterol, Hypertension Respiratory History: Asthma, Other Endocrine Medical History: No Pertinent History Musculoskeletal History: Arthritis GI Medical History: GERD, Gallbladder Disease, Hemorrhoids, Other History: No Pertinent History Psycho-Social History: No Pertinent History Female Reproductive Disorders: No Pertinent History Other Medical History: DOA - Past Surgical History Past Surgical History: Yes Neuro Surgical History: No Pertinent History Cardiac: No Pertinent History Respiratory: No Pertinent History Gastrointestinal: Cholecystectomy Genitourinary: No Pertinent History Musculoskeletal: No Pertinent History Female Surgical History: Hysterectomy Other Surgical History: DOA - Social History Smoking Status: Never smoker Exposure to second hand smoke: No Drug Use: none Patient Lives Alone: No - Physical Exam General Appearance: other (Open mouth with no spontaneous breathing effort) Eye Exam: other (Fixed dilated to 6 mm pupils) Neck Exam: normal inspection Respiratory Exam: other (No breath sounds and no spontaneous effort) Cardiovascular Exam: other (No heartbeat, cold clammy extremities with developing cyanosis ) Extremity Exam: other (No signs of trauma. Cool clammy) Neurologic Exam: other (Abnormal tone. No pupillary response.) Skin Exam: cyanosis, pale Lab/Rad Data: Laboratory Results 12/20/20 Range/Units 10:00 SARS-CoV-2 Ag (Rapid) NEGATIVE (NEGATIVE) - Progress Progress: unchanged Progress Note: 12/20/20 0 857 patient has no spontaneous breathing and no heart sounds. DNR by family. Patient is pronounced. Family counseled. Counseled pt/family regarding: diagnosis - Departure Clinical Impression: Cardiopulmonary arrest Condition: Critical Care Time: No Referrals: JENNIFER FRASER MD [Primary Care Provider] -
== END 2020-12-20 11:07 | disposition expired ==
LOC: ED 08:57
DX: I46.9 Cardiac arrest, cause unspecified (principal)
CPT/HCPCS: 99000; 99283